=== PATIENT | female | born 1985 | race African-American/Black ===

== ENCOUNTER 2017-11-16 08:44 | Emergency (ER) | payer SELFPAY ==
[~2017-11-16] VITALS: Ht 165.1 cm; Wt 91.0 kg
[2017-11-16 11:42] VITALS: BP 151/99
[2017-11-16] MEDS ORDERED: IBUPROFEN 800MG TABLET PO ONE (11:45)
== END 2017-11-16 13:37 | disposition home or self-care (01) ==
LOC: ER 09:35
DX: S60.221A Contusion of right hand, initial encounter (principal); S63.91XA Sprain of unspecified part of right wrist and hand, initial encounter; R07.89 Other chest pain; J45.909 Unspecified asthma, uncomplicated; D64.9 Anemia, unspecified; V89.2XXA Person injured in unspecified motor-vehicle accident, traffic, initial encounter; Y92.410 Unspecified street and highway as the place of occurrence of the external cause; Z91.018 Allergy to other foods
CPT/HCPCS: 71045; 73110; 73130; 81025; 93005; 99284